=== PATIENT | male | born 1950 | race Caucasian/White ===

== ENCOUNTER 2022-01-05 21:06 | Observation (INO) | payer MEDICARE, OTHER ==
[2022-01-05] MEDS ORDERED: SODIUM CHLORIDE 0.9% 1,000 ML IV STA (21:42)
--- NOTE | 2022-01-05 21:46 | ED ---
Abdominal Pain HPI - General Chief Complaint: Abdominal Pain Stated Complaint: right flank pain Time Seen by Provider: 01/05/22 21:33 Source: patient Mode of arrival: ambulatory Limitations: no limitations - History of Present Illness Initial Comments: This is a pleasant 71-year-old male with a history of atrial fibrillation, hypertension, hyperlipidemia, kidney stones, and supraventricular tachycardia. Patient presents to the emergency department today complaining of right lower quadrant pain. Patient states he had mild discomfort in his midabdomen early in the week and now it has progressed and down to the right lower quadrant. [place] ent states that coughing, moving, bumps in the car, palpation exacerbate the pain. Alleviated by staying still. Really denying any nausea or vomiting. No diminished appetite. Patient was able to eat a ham sandwich at 5 PM. There is been no fever. No headache, no fever or chills, no changes in vision or hearing, no sore throat or difficulty with speech, no neck pain, no chest pain or shortness of breath, no nausea or vomiting, no changes in urination or bowel movements, no numbness or tingling, no extremity pain, no skin rashes or lesions. Past medical, surgical, social, and family history reviewed. - Related Data Allergies Allergy/AdvReac Type Severity Reaction Status Date / Time Sulfa (Sulfonamide Allergy Unknown Verified 01/05/22 21:15 Antibiotics) Childhood Review of Systems ROS Statement: Those systems with pertinent positive or pertinent negative responses have been documented in the HPI. ROS Other: All systems not noted in ROS Statement are negative. Past Medical History Past Medical History: Atrial Fibrillation, Hyperlipidemia, Hypertension, Supraventricular Tachycardia (SVT) Additional Past Medical History / Comment(s): COVID 2021, KINDEY STONES History of Any Multi-Drug Resistant Organisms: None Reported Past Surgical History: Ablation Past Psychological History: No Psychological Hx Reported Smoking Status: Never smoker Past Alcohol Use History: Occasional Past Drug Use History: None Reported General Exam - General Exam Comments Initial Comments: Vital signs stable, patient afebrile. Patient does not appear to be ill or toxic. Limitations: no limitations General appearance: alert, in no apparent distress Head exam: Present: atraumatic, normocephalic, normal inspection Eye exam: Present: normal appearance, PERRL, EOMI. Absent: scleral icterus, conjunctival injection, periorbital swelling ENT exam: Present: normal exam, mucous membranes moist, normal external ear exam. Absent: mucous membranes dry Neck exam: Present: normal inspection, full ROM Respiratory exam: Present: normal lung sounds bilaterally. Absent: respiratory distress, wheezes, rales, rhonchi, stridor Cardiovascular Exam: Present: regular rate, normal rhythm, normal heart sounds. Absent: systolic murmur, diastolic murmur, rubs, gallop, clicks GI/Abdominal exam: Present: soft, tenderness, guarding, rebound, diminished bowel sounds. Absent: distended, rigid Expanded GI/Abdominal exam: Present: psoas sign, obturator sign, Rovsing's sign, tenderness at McBurney's Point Extremities exam: Present: normal inspection, full ROM, normal capillary refill. Absent: tenderness, pedal edema, joint swelling, calf tenderness Back exam: Present: normal inspection Neurological exam: Present: alert, oriented X3, CN II-XII intact Psychiatric exam: Present: normal affect, normal mood Skin exam: Present: warm, dry, intact, normal color. Absent: rash Course Vital Signs 01/05/22 21:12 Temperature 98.3 F Pulse Rate 70 Respiratory 18 Rate Blood Pressure 126/83 O2 Sat by Pulse 97 Oximetry - Consultations Consultation #1: Case discussed in detail with Dr. Feldman who suggested admitting the patient for observation under medicine. He will recheck the patient in the morning. We'll repeat a CBC. Medical Decision Making - Medical Decision Making Patient's presentation most consistent with appendicitis as the patient has McBurney point tenderness with several signs of acute appendicitis to include rebound or percussion tenderness. Other inflammatory versus intra-abdominal pathology possible but less likely. Patient has no hematuria. No flank pain. There is no CVA pain. No fever. There is no upper abdominal pain. Not consistent with cardiopulmonary disease. Patient's white blood cell count is normal. Creatinine 1.47. Potassium 3.2. CO2 31. - Lab Data Result diagrams: 01/05/22 21:45 01/05/22 21:45 Lab Results 01/05/22 01/05/22 01/05/22 Range/Units 21:45 21:45 21:45 WBC 9.0 (3.8-10.6) k/uL RBC 4.81 (4.30-5.90) m/uL Hgb 15.4 (13.0-17.5) gm/dL Hct 45.7 (39.0-53.0) % MCV 95.0 (80.0-100.0) fL MCH 32.1 (25.0-35.0) pg MCHC 33.8 (31.0-37.0) g/dL RDW 12.8 (11.5-15.5) % Plt Count 167 (150-450) k/uL MPV 8.9 Neutrophils % 69 % Lymphocytes % 21 % Monocytes % 6 % Eosinophils % 2 % Basophils % 1 % Neutrophils # 6.2 (1.3-7.7) k/uL Lymphocytes # 1.9 (1.0-4.8) k/uL Monocytes # 0.6 (0-1.0) k/uL Eosinophils # 0.2 (0-0.7) k/uL Basophils # 0.1 (0-0.2) k/uL Sodium 139 (137-145) mmol/L Potassium 3.2 L (3.5-5.1) mmol/L Chloride 101 (98-107) mmol/L Carbon Dioxide 31 H (22-30) mmol/L Anion Gap 7 mmol/L BUN 20 (9-20) mg/dL Creatinine 1.47 H (0.66-1.25) mg/dL Est GFR (CKD-EPI)AfAm 54 (>60 ml/min/1.73 sqM) Est GFR (CKD-EPI)NonAf 47 (>60 ml/min/1.73 sqM) Glucose 114 H (74-99) mg/dL Calcium 9.5 (8.4-10.2) mg/dL Total Bilirubin 0.9 (0.2-1.3) mg/dL AST 34 (17-59) U/L ALT 23 (4-49) U/L Alkaline Phosphatase 73 (38-126) U/L Total Protein 7.3 (6.3-8.2) g/dL Albumin 4.4 (3.5-5.0) g/dL Urine Color Yellow Urine Appearance Clear (Clear) Urine pH 7.0 (5.0-8.0) Ur Specific [place] 1.022 (1.001-1.035) Urine Protein Trace H (Negative) Urine Glucose (UA) Negative (Negative) Urine Ketones Negative (Negative) Urine Blood Negative (Negative) Urine Nitrite Negative (Negative) Urine Bilirubin Negative (Negative) Urine Urobilinogen 3.0 (<2.0) mg/dL Ur Leukocyte Esterase Negative (Negative) Disposition Clinical Impression: Right lower quadrant abdominal pain, Terminal ileitis Disposition: ADMITTED IP TO THIS [facility] Condition: Stable Referrals: Nonstaff,Physician [Primary Care Provider] - 1-2 days Time of Disposition: 23:39 Decision to Admit Reason: Admit from EC Decision Time: 23:39
[2022-01-05 22:01] LABS: Basophils # (A) 0.1 k/uL (0-0.2); Basophils % (A) 1 %; Eosinophils # (A) 0.2 k/uL (0-0.7); Eosinophils % (A) 2 %; HCT 45.7 % (39.0-53.0); HGB 15.4 gm/dL (13.0-17.5); Lymphocytes # (A) 1.9 k/uL (1.0-4.8); Lymphocytes % (A) 21 %; MCH 32.1 pg (25.0-35.0); MCHC 33.8 g/dL (31.0-37.0); Mean Platelet Volume 8.9; Monocytes # (A) 0.6 k/uL (0-1.0); Monocytes % (A) 6 %; Neutrophils # (A) 6.2 k/uL (1.3-7.7); Neutrophils % (A) 69 %; Platelet Count 167 k/uL (150-450); RBC 4.81 m/uL (4.30-5.90); RDW 12.8 % (11.5-15.5)
[2022-01-05 22:02] LABS: Appearance,Urine Clear (Clear); Bilirubin,Urine Negative (Negative); Blood,Urine Negative (Negative); Color,Urine Yellow; Glucose,Urine (UA) Negative (Negative); Ketones,Urine Negative (Negative); Leukocyte Esterase,Urine Negative (Negative); Nitrite,Urine Negative (Negative); Protein,Urine Trace (Negative); Specific Gravity,Urine 1.022 (1.001-1.035)
[2022-01-05 22:18] LABS: Albumin 4.4 g/dL (3.5-5.0); Calcium 9.5 mg/dL (8.4-10.2); Potassium 3.2 mmol/L (3.5-5.1); Total Bilirubin 0.9 mg/dL (0.2-1.3); Total Protein 7.3 g/dL (6.3-8.2)
--- NOTE | 2022-01-05 23:26 | CT ---
EXAMINATION TYPE: CT abdomen pelvis w con DATE OF EXAM: 01/05/2022 COMPARISON: None HISTORY: RLQ abd pain CT DLP: 1117.6 mGycm Automated exposure control for dose reduction was used. CONTRAST: Performed with IV Contrast, patient injected with 80ml mL of Isovue 300. Images obtained from the diaphragm to the floor the pelvis with IV contrast. There is subsegmental atelectasis at the lung bases. Heart size is normal. No pericardial effusion. Liver spleen and stomach pancreas and gallbladder appear intact. The bile ducts are not dilated. There is no adrenal mass. Kidneys have normal size and contour. There is no hydronephrosis. There is 5 mm calculus lateral left kidney. Ureters are not dilated. 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 Bladder distends smoothly. There is 4 mm calculus lateral right kidney. There is no inguinal hernia. No free fluid in the pelvis. There is some fat stranding in the right lo wer quadrant. The appendix is normal size. Appendix mostly filled with air. No ascites or free air. No bowel obstruction. The lumbar vertebrae have normal alignment. No compression fracture. Facet joints are intact. Bony pe lvis is intact. Hip joints are intact. Impression There are bilateral nonobstructing renal calculi. Segmental atelectasis at the lung bases. There is fat stranding around the cecum and ileocecal valve and terminal ileum that could relate to f ocal inflammatory bowel disease. The appendix appears normal.
[2022-01-05] MEDS ORDERED: NALOXONE 0.4 MG/ML 1 ML VIAL IV PRN (23:55)
[2022-01-05] MEDS ORDERED: ONDANSETRON 4 MG/2 ML VIAL IVP PRN (23:55)
[2022-01-05] MEDS ORDERED: MORPHINE SULFATE 4 MG/ML SYRINGE IV PRN (23:55)
[2022-01-06] MEDS: SODIUM CHLORIDE 0.9% 1,000 ML IV SCH ×4 (01:58→23:29)
[2022-01-06 04:09] LABS: Basophils % (A) 1 %; Eosinophils # (A) 0.2 k/uL (0-0.7); Eosinophils % (A) 3 %; HCT 42.5 % (39.0-53.0); HGB 14.1 gm/dL (13.0-17.5); Lymphocytes # (A) 1.8 k/uL (1.0-4.8); Lymphocytes % (A) 25 %; MCH 31.9 pg (25.0-35.0); MCHC 33.1 g/dL (31.0-37.0); MCV 96.4 fL (80.0-100.0); Mean Platelet Volume 8.4; Monocytes # (A) 0.5 k/uL (0-1.0); Monocytes % (A) 7 %; Neutrophils # (A) 4.7 k/uL (1.3-7.7); Neutrophils % (A) 64 %; Platelet Count 145 k/uL (150-450); RBC 4.41 m/uL (4.30-5.90); RDW 12.9 % (11.5-15.5); WBC 7.3 k/uL (3.8-10.6)
[2022-01-06 04:30] LABS: Calcium 8.6 mg/dL (8.4-10.2); Potassium 3.6 mmol/L (3.5-5.1)
--- NOTE | 2022-01-06 07:04 | P.HPIM ---
History of Present Illness H&P Date: 01/06/22 The patient is a 71-year-old male with a PMH of A. fib not on anticoagulation (remote history of single episode as per patient), chronic kidney disease, hyperlipidemia, hypertension, who presents to the emergency room with complaints of right lower quadrant abdominal discomfort. The patient reports that his pain started roughly 5 days ago this past Friday. Reports that it was initially periumbilical but then moved to the right lower quadrant, 5 out of 10 at maximal intensity, nonradiating. Reports that the pain had improved to the 2 out of 10 at the time of interview. Notes that any sort of movement exacerbates the pain. He denied experiencing fever, chills, nausea, vomiting, or diarrhea. He also denied urinary complaints. Reports no changes in his diet or appetite. Patient also denied hematochezia or melena. CT abdomen and pelvis in the emergency room revealed bilateral nonobstructing renal calculi with fat stranding around the cecum and ileocecal valve and terminal ileum possibly due to focal inflammatory bowel disease with the appendix appearing normal. Laboratory evaluation was remarkable for creatinine of 1.66 and platelets 145. Review of systems: Pertinent positives and negatives as discussed in HPI, a complete review of systems was performed and all other systems are negative. Physical examination: General: non toxic, no distress, appears at stated age, normal weight Derm: no unusual rashes/lesions, warm Head: atraumatic, normocephalic, symmetric Eyes: EOMI, no lid lag, anicteric sclera, pupils equal round reactive to light ENT: Nose and ears atraumatic Neck: No cervical lymphadenopathy, trachea midline, supple Mouth: no lip lesion, mucus membranes moist Cardiovascular: S1S2 reg, no murmur, positive dorsalis pedis pulse bilateral, no edema Lungs: CTA bilateral, no rhonchi, no rales, no accessory muscle use Abdominal: soft, mild right lower quadrant tenderness, no guarding Ext: muscle strength 5 out of 5 in all 4 extremities grossly, no gross muscle atrophy, no contractures, Neuro: CN II-XI grossly intact, no gross focal neuro deficits Psych: Alert, oriented, appropriate affect Assessment/plan Abdominal pain with inflammatory changes of the terminal ileum -Concerning for possible inflammatory bowel disease i.e. Crohn's -Surgery consulted to rule out appendicitis -IV fluids -Pain control -Nothing by mouth for now -Consider steroids once appendicitis ruled out vs colonoscopy for diagnotic biopsy Chronic conditions: Hypertension, hyperlipidemia -Continue with home meds DVT prophylaxis -Heparin subcu The patient is admitted with an anticipated less than 2 midnight stay for evaluation of abdominal pain CODE STATUS: Full Code Discussed with: Patient Anticipated discharge date: in am Anticipated discharge place: Home Past Medical History Past Medical History: Atrial Fibrillation, Hyperlipidemia, Hypertension, Supraventricular Tachycardia (SVT) Additional Past Medical History / Comment(s): COVID 2021, KINDEY STONES History of Any Multi-Drug Resistant Organisms: None Reported Past Surgical History: Ablation Past Anesthesia/Blood Transfusion Reactions: No Reported Reaction Past Psychological History: No Psychological Hx Reported Smoking Status: Never smoker Past Alcohol Use History: Occasional Past Drug Use History: None Reported - Past Family History Mother Family Medical History: Hypertension (NUL), Skin Disorder Medications and Allergies Home Medications Medication Instructions Recorded Confirmed Type Doxazosin [Cardura] 2 mg PO DAILY 01/06/22 01/06/22 History Latanoprost/Pf [Latanoprost 0.005% 1 drop BOTH EYES DAILY 01/06/22 01/06/22 History Eye Drop] Lovastatin [Altoprev] 40 mg PO DAILY 01/06/22 01/06/22 History Metoprolol Succinate [Toprol XL] 50 mg PO DAILY 01/06/22 01/06/22 History Timolol 0.25% Ophth Soln [Timoptic] 1 drops BOTH EYES HS 01/06/22 01/06/22 History amLODIPine [Norvasc] 5 mg PO DAILY 01/06/22 01/06/22 History hydroCHLOROthiazide 25 mg PO DAILY 01/06/22 01/06/22 History Allergies Allergy/AdvReac Type Severity Reaction Status Date / Time Sulfa (Sulfonamide Allergy Unknown Verified 01/05/22 21:15 Antibiotics) Childhood Physical Exam Vitals: Vital Signs Temp Pulse Resp BP Pulse Ox 01/06/22 00:14 83 18 123/86 98 01/05/22 21:12 98.3 F 70 18 126/83 97 Intake and Output 01/05/22 01/05/22 01/06/22 14:59 22:59 06:59 Other: Weight 90.718 kg 90.718 kg Results CBC & Chem 7: 01/06/22 03:22 01/06/22 03:22 Labs: Abnormal Lab Results - Last 24 Hours (Table) 01/05/22 01/05/22 Range/Units 21:45 21:45 Potassium 3.2 L (3.5-5.1) mmol/L Carbon Dioxide 31 H (22-30) mmol/L Creatinine 1.47 H (0.66-1.25) mg/dL Glucose 114 H (74-99) mg/dL Urine Protein Trace H (Negative) Thrombosis Risk Factor Assmnt - Choose All That Apply Any of the Below Risk Factors Present?: No Each Risk Factor Represents 2 Points: Age 61-74 years Other congenital or acquired thrombophilia - If yes, enter type in comment: No Thrombosis Risk Factor Assessment Total Risk Factor Score: 2 Thrombosis Risk Factor Assessment Level: Low Risk
[2022-01-06] MEDS ORDERED: LATANOPROST 0.005% OPHTH DROPS 2.5 ML BTL BOTH EYES SCH ×2 (09:00→21:00)
--- NOTE | 2022-01-06 13:05 | P.GSCN ---
History of Present Illness Consult date: 01/06/22 Reason for Consult: Right lower quadrant abdominal pain History of present illness: Patient is a 71-year-old gentleman who presented to [facility] emergency department on 01/05/2022 with chief complaint of 4 days of progressive abdominal pain that started at the epigastric position and came to rest in the right lower quadrant. He denies attendant anorexia, nausea, vomiting, fever or chills. No reported radiation of pain to the shoulder or flank. He hasn't had similar discomfort in the past. No previous abdominal surgeries. No change in bowel habits, no signs of GI bleeding reported. He has no known personal or fam kizzy history of inflammatory bowel disease. He recalls having undergone colonoscopy somewhere around 5 years or more ago and recalls no specific abnormalities found. A computed tomography scan of the abdomen and pelvis was obtained showing a degree of fat stranding about the terminal ileum, ileocecal valve and cecum and some mild prominence of the adjacent mesenteric lymph nodes. Appendix was readily identified and shows no inflammatory changes, no fecalith, no abnormality to implicate an acute appendicitis. There is no adjacent free fluid no evidence of abscess. There was incidental note of a 2 cm left common iliac aneurysm and bilateral nonobstructing renal calculi. No evidence of bowel obstruction, no free air or free fluid. Apparently he and his suffered with Covid infection around 1 month ago. No reported recent sick contacts. Laboratory studies on presentation and this morning are unimpressive. Initial white blood cell count was 9.0, hemoglobin 15.4, platelet count 167. Serum sodium was 139, potassium slightly low at 3.2, CO2 31, creatinine of 1.47, glucose of 114. Liver function studies were all within normal limits. Urinalysis showed no signs of infection. He's been admitted for overnight observation to the medical service, been kept nothing by mouth with IV fluids and his right lower quadrant pain is quite improved. He still has some soreness with movement and position changes were on the whole is feeling better than on presentation. He feels quite hungry. Medical record suggests a history of atrial fibrillation, is not maintained on anticoagulants, would seem to be on rate control medications. No known personal history of heart attack, stroke, DVT or pulmonary embolus. Review of Systems All systems: negative - Constitutional Reports as per HPI Past Medical History Past Medical History: Atrial Fibrillation, Hyperlipidemia, Hypertension, Supraventricular Tachycardia (SVT) Additional Past Medical History / Comment(s): COVID 2021, KINDEY STONES History of Any Multi-Drug Resistant Organisms: None Reported Past Surgical History: Ablation Past Anesthesia/Blood Transfusion Reactions: No Reported Reaction Past Psychological History: No Psychological Hx Reported Smoking Status: Never smoker Past Alcohol Use History: Occasional Past Drug Use History: None Reported - Past Family History Mother Family Medical History: Hypertension (NUL), Skin Disorder Medications and Allergies Home Medications Medication Instructions Recorded Confirmed Type Doxazosin [Cardura] 2 mg PO DAILY 01/06/22 01/06/22 History Latanoprost/Pf [Latanoprost 0.005% 1 drop LEFT EYE HS 01/06/22 01/06/22 History Eye Drop] Lovastatin [Altoprev] 40 mg PO DAILY 01/06/22 01/06/22 History Metoprolol Succinate [Toprol XL] 50 mg PO DAILY 01/06/22 01/06/22 History Timolol 0.25% Ophth Soln [Timoptic] 1 drops LEFT EYE DAILY 01/06/22 01/06/22 History amLODIPine [Norvasc] 5 mg PO DAILY 01/06/22 01/06/22 History hydroCHLOROthiazide 25 mg PO DAILY 01/06/22 01/06/22 History Allergies Allergy/AdvReac Type Severity Reaction Status Date / Time Sulfa (Sulfonamide Allergy Unknown Verified 01/06/22 11:50 Antibiotics) Childhood Surgical - Exam Osteopathic Statement: *. No significant issues noted on an osteopathic structural exam other than those noted in the History and Physical/Consult. Vital Signs Temp Pulse Resp BP Pulse Ox 98.3 F 70 18 126/83 97 01/05/22 21:12 01/05/22 21:12 01/05/22 21:12 01/05/22 21:12 01/05/22 21:12 - General well developed, well nourished, no distress - Eyes PERRL, normal ocular movement - ENT normal pinna, normal nares, normal mucosa, no hearing loss, no congestion - Neck trachea midline - Respiratory normal respiratory effort, clear to auscultation - Cardiovascular Rhythm: regular - Abdomen Abdomen is soft, there is focal tenderness over McBurney's point with rebound, no guarding. Trace positive so as an Rovsing sign. Abdomen: soft Hernia: none - Integumentary no rash - Neurologic normal coordination, normal sensation - Psychiatric oriented to time, oriented to person, oriented to place, speech is normal, memory intact Results - Labs 01/06/22 03:22 01/06/22 03:22 Abnormal Lab Results - Last 24 Hours (Table) 01/05/22 01/05/22 01/06/22 Range/Units 21:45 21:45 03:22 Plt Count 145 L (150-450) k/uL Potassium 3.2 L (3.5-5.1) mmol/L Carbon Dioxide 31 H (22-30) mmol/L Creatinine 1.47 H (0.66-1.25) mg/dL Glucose 114 H (74-99) mg/dL Urine Protein Trace H (Negative) 01/06/22 Range/Units 03:22 Plt Count (150-450) k/uL Potassium (3.5-5.1) mmol/L Carbon Dioxide (22-30) mmol/L Creatinine 1.36 H (0.66-1.25) mg/dL Glucose (74-99) mg/dL Urine Protein (Negative) Diabetes panel 01/05/22 01/06/22 Range/Units 21:45 03:22 Sodium 139 138 (137-145) mmol/L Potassium 3.2 L 3.6 (3.5-5.1) mmol/L Chloride 101 106 (98-107) mmol/L Carbon Dioxide 31 H 29 (22-30) mmol/L BUN 20 18 (9-20) mg/dL Creatinine 1.47 H 1.36 H (0.66-1.25) mg/dL Glucose 114 H 96 (74-99) mg/dL Calcium 9.5 8.6 (8.4-10.2) mg/dL AST 34 (17-59) U/L ALT 23 (4-49) U/L Alkaline Phosphatase 73 (38-126) U/L Total Protein 7.3 (6.3-8.2) g/dL Albumin 4.4 (3.5-5.0) g/dL Calcium panel 01/05/22 01/06/22 Range/Units 21:45 03:22 Calcium 9.5 8.6 (8.4-10.2) mg/dL Albumin 4.4 (3.5-5.0) g/dL Pituitary panel 01/05/22 01/06/22 Range/Units 21:45 03:22 Sodium 139 138 (137-145) mmol/L Potassium 3.2 L 3.6 (3.5-5.1) mmol/L Chloride 101 106 (98-107) mmol/L Carbon Dioxide 31 H 29 (22-30) mmol/L BUN 20 18 (9-20) mg/dL Creatinine 1.47 H 1.36 H (0.66-1.25) mg/dL Glucose 114 H 96 (74-99) mg/dL Calcium 9.5 8.6 (8.4-10.2) mg/dL Adrenal panel 01/05/22 01/06/22 Range/Units 21:45 03:22 Sodium 139 138 (137-145) mmol/L Potassium 3.2 L 3.6 (3.5-5.1) mmol/L Chloride 101 106 (98-107) mmol/L Carbon Dioxide 31 H 29 (22-30) mmol/L BUN 20 18 (9-20) mg/dL Creatinine 1.47 H 1.36 H (0.66-1.25) mg/dL Glucose 114 H 96 (74-99) mg/dL Calcium 9.5 8.6 (8.4-10.2) mg/dL Total Bilirubin 0.9 (0.2-1.3) mg/dL AST 34 (17-59) U/L ALT 23 (4-49) U/L Alkaline Phosphatase 73 (38-126) U/L Total Protein 7.3 (6.3-8.2) g/dL Albumin 4.4 (3.5-5.0) g/dL - Imaging CT scan - abdomen: report reviewed, image reviewed CT scan - pelvis: report reviewed, image reviewed Assessment and Plan Assessment: 71-year-old gentleman with clinical history, physical exam, and imaging findings most consistent with mesenteric adenitis and acute viral illness. Alternatively could relate to a new presentation of inflammatory bowel disease but I feel like this is much less likely. His symptoms have improved with overnight bowel rest and IV fluids, doubt bacterial enteritis or colitis at present. Appendix is easily visualized on CT and is entirely normal in character, no fecalith. No signs of adjacent abscess formation. He has a nontoxic appearance. Plan: Okay to advance to soft diet, if he has no issues with dietary tolerance he should be okay for discharge from a surgical standpoint at any time. He was advised that his imaging is not convincing for acute appendicitis and mesenteric adenitis is typically self-limited. Treatment is supportive and typically does not require antibiotics. If he has recurrent issues with similar pain after discharge he will need a set of repeat imaging and diagnostic colonoscopy should be considered on an outpatient basis. Follow-up with primary care in 1 week. Follow-up with general surgery as needed. Time with Patient: Greater than 30
--- NOTE | 2022-01-06 13:14 | P.PN ---
Subjective Progress Note Date: 01/06/22 Hospital course: The patient is a very pleasant 71-year-old male with a past medical history of A. fib not on anticoagulation (reports remote history of single episode as per patient and [id number] 2 due to age and htn hx), chronic kidney disease, hyperlipidemia, and hypertension. He presented to the emergency department with a chief complaint of of right lower quadrant abdominal discomfort beginning approximately 5 days prior. Patient underwent full evaluation in the emergency d epartment. CT abdomen and pelvis revealing bilateral nonobstructing renal calculi, segmental atelectasis at lung bases, and fat stranding around the cecum and ileocecal valve and terminal ileum possibly relating to focal inflammatory bowel disease. CBC unremarkable, CMP revealed hypokalemia with potassium of 3.2 and consistent with PKD with BUN 20, creatinine 1.47, and GFR 47. Urinalysis positive for protein negative for blood or infection. Patient admitted under our services with consultation to general surgery. Physical examination: Patient seen and fully evaluated at bedside. Patient reports the pain in his right lower quadrant is a but is not significant unless he moves or coughs or palpates area. He denies any nausea or vomiting. Vital signs unremarkable. Morning labs unremarkable with the exception of platelet count of 145 and creatinine of 1.36. Awaiting general surgery to evaluate and further recommendations. Patient to remain Nothing by mouth, until cleared and diet is advanced by General Surgery. We will continue with symptomatic care and pain management and continued IV fluid hydration. General: non toxic, no distress, appears at stated age Derm: warm, dry Head: atraumatic, normocephalic, symmetric Eyes: EOMI, no lid lag, anicteric sclera Mouth: no lip lesion, mucus membranes moist Cardiovascular: S1S2 reg, no murmur, positive posterior tibial pulse bilateral, Lungs: CTA bilateral, no rhonchi, no rales , no accessory muscle use Abdominal: soft, right lower quadrant tenderness upon palpation, no guarding, no appreciable organomegaly Ext: no gross muscle atrophy, no edema, no contractures Neuro: CN II-XI grossly intact, no focal neuro deficits Psych: Alert, oriented, appropriate affect Assessment and plan of care: Abdominal pain with inflammatory changes of the terminal ileum, rule out appendicitis vs inflammatory bowel disease -CT abdomen and pelvis revealing bilateral nonobstructing renal calculi, segmental atelectasis at lung bases, and fat stranding around the cecum and ileocecal valve and terminal ileum possibly relating to focal inflammatory bowel disease. -Surgery consulted to rule out appendicitis -Continue hydration with IV fluids until diet can be advanced -Symptomatically and pain management -Nothing by mouth, until cleared by General Surgery Hypokalemia, resolved Hypertension -Monitor vital signs and continue daily medication regimen with metoprolol and amlodipine, hold hydrochlorothiazide at this time may resume once diet is advanced. Hyperlipidemia -Continue daily medication regimen with lovastatin. CODE STATUS: Full Code DVT prophylaxis: Lovenox Discussed with: Patient and patient's as well as RN Anticipated discharge date: Likely tomorrow morning Anticipated discharge place: Home A total of 35 minutes was spent on the care of this complex patient more than 50% of the time was spent in counseling and care coordination. I reviewed the documentation as provided by the MELBA above, who is the original author of this note. I agree with the documented assessment and plan, with the following changes: none Objective - Vital Signs Vital signs: Vital Signs Temp 97.7 F 01/06/22 07:00 Pulse 58 L 01/06/22 07:00 Resp 18 01/06/22 07:00 BP 105/65 01/06/22 07:00 Pulse Ox 93 L 01/06/22 07:00 FiO2 Intake & Output 01/05/22 01/06/22 01/06/22 18:59 06:59 18:59 Weight 90.718 kg Other: Voiding Method Toilet # Voids 2 - Labs CBC & Chem 7: 01/06/22 03:22 01/06/22 03:22 Labs: Abnormal Lab Results - Last 24 Hours (Table) 01/05/22 01/05/22 01/06/22 Range/Units 21:45 21:45 03:22 Plt Count 145 L (150-450) k/uL Potassium 3.2 L (3.5-5.1) mmol/L Carbon Dioxide 31 H (22-30) mmol/L Creatinine 1.47 H (0.66-1.25) mg/dL Glucose 114 H (74-99) mg/dL Urine Protein Trace H (Negative) 01/06/22 Range/Units 03:22 Plt Count (150-450) k/uL Potassium (3.5-5.1) mmol/L Carbon Dioxide (22-30) mmol/L Creatinine 1.36 H (0.66-1.25) mg/dL Glucose (74-99) mg/dL Urine Protein (Negative)
[2022-01-06] MEDS ORDERED: TIMOLOL 0.25% OPHTH DROPS 5 ML BTL BOTH EYES SCH (21:00)
[2022-01-07 02:40] VITALS: TEMP 97.9
[2022-01-07] MEDS: SODIUM CHLORIDE 0.9% 1,000 ML IV SCH (05:21)
[2022-01-07 08:02] VITALS: BP 114/69; PULSE 59; RESP 17
[2022-01-07] MEDS ORDERED: ATORVASTATIN 10 MG TAB PO SCH (09:00)
[2022-01-07] MEDS ORDERED: amLODIPine 5 MG TAB PO SCH (09:00)
[2022-01-07] MEDS ORDERED: TIMOLOL 0.25% OPHTH DROPS 5 ML BTL BOTH EYES SCH (09:00)
[2022-01-07] MEDS ORDERED: ENOXAPARIN 40 MG/0.4 ML SYRINGE SQ SCH (09:00)
[2022-01-07] MEDS ORDERED: METOPROLOL SUCCINATE (ER) 50 MG TAB.ER.24H PO SCH (09:00)
[2022-01-07] MEDS ORDERED: DOXAZOSIN 2 MG TAB PO SCH (09:00)
--- NOTE | 2022-01-07 09:25 | P.DS ---
Providers Date of admission: 01/06/22 00:31 Expected date of discharge: 01/07/22 Attending physician: Jeremías Corey MD Consults: 01/05/22 23:55 Consult Physician Stat Consulting Provider: Jamey Feldman Reason/Comments: Right lower quadrant pain, terminal ileitis Do you want consulting provider notified?: Already Contacted Primary care physician: Physician Nonstaff Hospital Course: Discharge Diagnosis: Abdominal pain with inflammatory changes of the terminal ileum, appendicitis ruled out. Symptoms resolved. Hypokalemia, resolved Hypertension. Monitor vital signs and continue daily medication regimen with metoprolol, hydrochlorothiazide and amlodipine. Hyperlipidemia. Continue daily medication regimen with lovastatin. Hospital Course: The patient is a very pleasant 71-year-old male with a past medical history of A. fib not on anticoagulation (reports remote history of single episode as per patient and [id number] 2 due to age and htn hx), chronic kidney disease, hyperlipidemia, and hypertension. He presented to the emergency department with a chief complaint of of right lower quadrant abdominal discomfort beginning approximately 5 days prior. Patient underwent full evaluation in the emergency department. CT abdomen and pelvis revealing bilateral nonobstructing renal calculi, segmental atelectasis at lung bases, and fat stranding around the cecum and ileocecal valve and terminal ileum possibly relating to focal inflammatory bowel disease. CBC unremarkable, CMP revealed hypokalemia with potassium of 3.2 and consistent with PKD with BUN 20, creatinine 1.47, and GFR 47. Urinalysis positive for protein negative for blood or infection. Patient admitted under our services with consultation to general surgery. He was seen and evaluated by general surgery and stated appendix was easily visualized on CT and entire normal in character with no signs of abscess formation. Patient's diet was advanced and patient tolerated well. Patient's pain progressively improved and nearly resolved. Patient tolerating regular diet and denied any episodes of n ausea, vomiting, diarrhea, or any other complaints. Patient reports that he is passing flatus and had a bowel movement last night. Patient is medically stable for discharge at this time. Given information on local primary care provider as patient is new to our area, it was recommended patient establish care with this PCP and follow up in 1-2 days and as needed. Patient medically stable for dis charge home. Physical examination: General: non toxic, no distress, appears at stated age Derm: warm, dry Head: atraumatic, normocephalic, symmetric Eyes: EOMI, no lid lag, anicteric sclera Mouth: no lip lesion, mucus membranes moist Cardiovascular: S1S2 reg, no murmur, positive posterior tibial pulse bilateral, Lungs: CTA bilateral, no rhonchi, no rales , no accessory muscle use Abdominal: soft, nontender to palpation, no guarding, no appreciable organomegaly Ext: no gross muscle atrophy, no edema, no contractures Neuro: CN II-XI grossly intact, no focal neuro deficits Psych: Alert, oriented, appropriate affect A total of 31 minutes of time were spent preparing this complex discharge summary. Pt was discharged on 01/07/22 at 8:10 AM. I reviewed the documentation as provided by the MELBA above, who is the original author of this note. I agree with the documented assessment and plan, with the following changes: none Patient Condition at Discharge: Stable Plan - Discharge Summary Discharge Rx Participant: No New Discharge Prescriptions: Continue hydroCHLOROthiazide 25 mg PO DAILY amLODIPine [Norvasc] 5 mg PO DAILY Timolol 0.25% Ophth Soln [Timoptic 0.25% Ophth Soln] 1 drops LEFT EYE DAILY Latanoprost/Pf [Latanoprost 0.005% Eye Drop] 1 drop LEFT EYE HS Doxazosin [Cardura] 2 mg PO DAILY Metoprolol Succinate [Toprol XL] 50 mg PO DAILY Lovastatin [Altoprev] 40 mg PO DAILY Discharge Medication List Doxazosin [Cardura] 2 mg PO DAILY 01/06/22 [History] Latanoprost/Pf [Latanoprost 0.005% Eye Drop] 1 drop LEFT EYE HS 01/06/22 [History] Lovastatin [Altoprev] 40 mg PO DAILY 01/06/22 [History] Metoprolol Succinate [Toprol XL] 50 mg PO DAILY 01/06/22 [History] Timolol 0.25% Ophth Soln [Timoptic 0.25% Ophth Soln] 1 drops LEFT EYE DAILY 01/06/22 [History] amLODIPine [Norvasc] 5 mg PO DAILY 01/06/22 [History] hydroCHLOROthiazide 25 mg PO DAILY 01/06/22 [History] Follow up Appointment(s)/Referral(s): Gonzalez Gonzalez [STAFF PHYSICIAN] - 1 Week (Recommend for family PCP) Activity/Diet/Wound Care/Special Instructions: Activity: As tolerated. Take breaks as needed. Diet: For the next few days I would follow a low fat diet and then may resume regular Heart healthy diet as tolerated. Special Instructions: Take all of your medications as directed and remember to keep all of your doctor's appointments and follow-up as needed. Thank you for allowing us to participate in your care, it was truly a pleasure having you for our patient!!! I hope you and your complete your move safely and truly love your new home and new location here in [place]!!!!! Discharge Disposition: HOME SELF-CARE
== END 2022-01-07 09:32 | disposition home or self-care (01) ==
LOC: EC 21:06 → 6NMEDSUR 01-06 00:31
PROVIDERS: ADMIT Internal Medicine; ATTEND Internal Medicine
DX: K50.00 Crohn's disease of small intestine without complications (principal); E87.6 Hypokalemia; E78.5 Hyperlipidemia, unspecified; I48.91 Unspecified atrial fibrillation; J98.11 Atelectasis; I47.1 Supraventricular tachycardia; I72.3 Aneurysm of iliac artery; N20.0 Calculus of kidney; I12.9 Hypertensive chronic kidney disease with stage 1 through stage 4 chronic kidney disease, or unspecified chronic kidney disease; N18.9 Chronic kidney disease, unspecified; Z88.2 Allergy status to sulfonamides; Z87.442 Personal history of urinary calculi; Z86.16 Personal history of COVID-19; Z82.49 Family history of ischemic heart disease and other diseases of the circulatory system; Z79.899 Other long term (current) drug therapy
CPT/HCPCS: 99285; 36415; 80053; 80048; 85025 ×2; 81003; 74177; G0378 ×2; Q9967

== ENCOUNTER 2022-10-31 07:03 | Emergency (ER) | payer MEDICARE, OTHER ==
[2022-10-31 07:09] VITALS: TEMP 96.8
[2022-10-31] MEDS ORDERED: HYDROmorphone 0.5 MG/0.5 ML SYRINGE IVP STA ×2 (07:22→10:38)
[2022-10-31] MEDS ORDERED: SODIUM CHLORIDE 0.9% 1,000 ML IV STA (07:22)
[2022-10-31] MEDS ORDERED: KETOROLAC 15 MG/ML 1 ML VIAL IVP STA (07:22)
[2022-10-31] MEDS ORDERED: ONDANSETRON 4 MG/2 ML VIAL IVP STA (07:22)
--- NOTE | 2022-10-31 07:53 | ED ---
Abdominal Pain HPI - General Chief Complaint: Abdominal Pain Stated Complaint: POSSIBLE KIDNEY STONE Time Seen by Provider: 10/31/22 07:12 Source: patient, RN notes reviewed Mode of arrival: wheelchair Limitations: no limitations - History of Present Illness Initial Comments: 72-year-old male presents emergency Department with chief complaint of left fla nk pain. Patient states pain started yesterday has worsened overnight. Patient is admitted nausea and vomiting. Patient states her left side and radiates on. States that he kidney stone the past states this feels much different. He has no dysuria no hematuria no diarrhea no constipation. Patient had no prior abdominal surgeries. - Related Data Home Medications Medication Instructions Recorded Confirmed Doxazosin [Cardura] 2 mg PO DAILY 01/06/22 07/10/22 Latanoprost/Pf [Latanoprost 0.005% 1 drop LEFT EYE HS 01/06/22 07/10/22 Eye Drop] Lovastatin [Altoprev] 40 mg PO DAILY 01/06/22 07/10/22 Metoprolol Succinate [Toprol XL] 50 mg PO DAILY 01/06/22 07/10/22 Timolol 0.25% Ophth Soln [Timoptic 1 drops LEFT EYE DAILY 01/06/22 07/10/22 0.25% Ophth Soln] amLODIPine [Norvasc] 5 mg PO DAILY 01/06/22 07/10/22 hydroCHLOROthiazide 25 mg PO DAILY 01/06/22 07/10/22 Previous Rx's Medication Instructions Recorded HYDROcodone/APAP 7.5-325MG [Fillmore 1 tab PO Q6HR PRN 3 Days #12 tab 10/31/22 7.5-325] Ondansetron Odt [Zofran Odt] 4 mg PO Q8HR PRN #10 tab 10/31/22 Allergies Allergy/AdvReac Type Severity Reaction Status Date / Time Sulfa (Sulfonamide Allergy Unknown Verified 07/10/22 16:03 Antibiotics) Childhood Review of Systems ROS Statement: Those systems with pertinent positive or pertinent negative responses have been documented in the HPI. ROS Other: All systems not noted in ROS Statement are negative. Past Medical History Past Medical History: Atrial Fibrillation, Hyperlipidemia, Hypertension, Supraventricular Tachycardia (SVT) Additional Past Medical History / Comment(s): COVID 2021, svt, transient A fib, KINDEY STONES x 2, glaucoma left eye History of Any Multi-Drug Resistant Organisms: None Reported Past Surgical History: Ablation Additional Past Surgical History / Comment(s): cataract surgery r eye Past Anesthesia/Blood Transfusion Reactions: No Reported Reaction Past Psychological History: No Psychological Hx Reported Smoking Status: Never smoker - Past Family History Mother Family Medical History: No Reported History Father Family Medical History: Cancer Additional Family Medical History / Comment(s): colon General Exam Limitations: no limitations General appearance: alert, in no apparent distress Head exam: Present: atraumatic, normocephalic, normal inspection Eye exam: Present: normal appearance, PERRL, EOMI. Absent: scleral icterus, conjunctival injection, periorbital swelling ENT exam: Present: normal exam, normal oropharynx, mucous membranes moist Neck exam: Present: normal inspection, full ROM. Absent: tenderness, meningismus, lymphadenopathy Respiratory exam: Present: normal lung sounds bilaterally. Absent: respiratory distress, wheezes, rales, rhonchi, stridor Cardiovascular Exam: Present: regular rate, normal rhythm, normal heart sounds. Absent: systolic murmur, diastolic murmur, rubs, gallop, clicks GI/Abdominal exam: Present: soft, tenderness, normal bowel sounds. Absent: distended, guarding, rebound, rigid Course Vital Signs 10/31/22 10/31/22 10/31/22 07:06 07:53 08:15 Temperature 96.8 F L Pulse Rate 59 L 60 65 Respiratory 19 18 18 Rate Blood Pressure 125/80 125/85 122/81 O2 Sat by Pulse 98 96 98 Oximetry Medical Decision Making - Lab Data Result diagrams: 10/31/22 07:51 10/31/22 07:51 Lab Results 10/31/22 10/31/22 10/31/22 Range/Units 07:51 07:51 10:08 WBC 7.6 (3.8-10.6) k/uL RBC 5.14 (4.30-5.90) m/uL Hgb 17.1 (13.0-17.5) gm/dL Hct 50.3 (39.0-53.0) % MCV 97.8 (80.0-100.0) fL MCH 33.3 (25.0-35.0) pg MCHC 34.1 (31.0-37.0) g/dL RDW 12.8 (11.5-15.5) % Plt Count 170 (150-450) k/uL MPV 8.8 Neutrophils % 77 % Lymphocytes % 17 % Monocytes % 5 % Eosinophils % 1 % Basophils % 0 % Neutrophils # 5.8 (1.3-7.7) k/uL Lymphocytes # 1.3 (1.0-4.8) k/uL Monocytes # 0.4 (0-1.0) k/uL Eosinophils # 0.0 (0-0.7) k/uL Basophils # 0.0 (0-0.2) k/uL Sodium 138 (137-145) mmol/L Potassium 3.4 L (3.5-5.1) mmol/L Chloride 99 (98-107) mmol/L Carbon Dioxide 27 (22-30) mmol/L Anion Gap 12 mmol/L BUN 26 H (9-20) mg/dL Creatinine 1.71 H (0.66-1.25) mg/dL Est GFR (CKD-EPI)AfAm 45 (>60 ml/min/1.73 sqM) Est GFR (CKD-EPI)NonAf 39 (>60 ml/min/1.73 sqM) Glucose 165 H (74-99) mg/dL Calcium 9.4 (8.4-10.2) mg/dL Total Bilirubin 1.1 (0.2-1.3) mg/dL AST 33 (17-59) U/L ALT 30 (4-49) U/L Alkaline Phosphatase 74 (38-126) U/L Total Protein 7.3 (6.3-8.2) g/dL Albumin 4.4 (3.5-5.0) g/dL Lipase 134 (23-300) U/L Urine Color Yellow Urine Appearance Clear (Clear) Urine pH 5.5 (5.0-8.0) Ur Specific Roy 1.020 (1.001-1.035) Urine Protein Negative (Negative) Urine Glucose (UA) 1+ H (Negative) Urine Ketones 1+ H (Negative) Urine Blood Moderate H (Negative) Urine Nitrite Negative (Negative) Urine Bilirubin Negative (Negative) Urine Urobilinogen <2.0 (<2.0) mg/dL Ur Leukocyte Esterase Negative (Negative) Urine RBC 23 H (0-5) /hpf Urine WBC 1 (0-5) /hpf Urine Mucus Rare H (None) /hpf Disposition Clinical Impression: Left ureteral calculus Disposition: HOME SELF-CARE Condition: Stable Instructions (If sedation given, give patient instructions): Kidney Stones (ED) Additional Instructions: Please return to the Emergency Department if symptoms worsen or any other concerns. Prescriptions: HYDROcodone/APAP 7.5-325MG [Fillmore 7.5-325] 1 tab PO Q6HR PRN 3 Days #12 tab PRN Reason: Pain Ondansetron Odt [Zofran Odt] 4 mg PO Q8HR PRN #10 tab PRN Reason: Nausea Is patient prescribed a controlled substance at d/c from ED?: Yes When asked, does pt state using other controlled substances?: No If prescribed controlled substance>3 days was MAPS reviewed?: Prescribed <3 Days If opioid is for acute pain is fill amount 7 days or less?: Yes If Rx opioid, was Start Talking consent form obtained?: Yes Referrals: None,Stated [REFERRING] - 1-2 days Time of Disposition: 10:32
[2022-10-31 08:05] LABS: Basophils % (A) 0 %; Eosinophils % (A) 1 %; HCT 50.3 % (39.0-53.0); HGB 17.1 gm/dL (13.0-17.5); Lymphocytes # (A) 1.3 k/uL (1.0-4.8); Lymphocytes % (A) 17 %; MCH 33.3 pg (25.0-35.0); MCHC 34.1 g/dL (31.0-37.0); MCV 97.8 fL (80.0-100.0); Mean Platelet Volume 8.8; Monocytes # (A) 0.4 k/uL (0-1.0); Monocytes % (A) 5 %; Neutrophils # (A) 5.8 k/uL (1.3-7.7); Neutrophils % (A) 77 %; Platelet Count 170 k/uL (150-450); RBC 5.14 m/uL (4.30-5.90); RDW 12.8 % (11.5-15.5); WBC 7.6 k/uL (3.8-10.6)
[2022-10-31 08:27] LABS: Albumin 4.4 g/dL (3.5-5.0); Calcium 9.4 mg/dL (8.4-10.2); Potassium 3.4 mmol/L (3.5-5.1); Total Bilirubin 1.1 mg/dL (0.2-1.3); Total Protein 7.3 g/dL (6.3-8.2)
--- NOTE | 2022-10-31 08:43 | CT ---
EXAMINATION TYPE: CT abdomen pelvis wo con CT DLP: 769.7 mGycm, Automated exposure control for dose reduction was used. DATE OF EXAM: 10/31/2022 8:24 AM COMPARISON: CT abdomen pelvis most recent from 01/05/2022 CLINICAL INDICATION:Male, 72 years old with history of left flank pain; Lt flank pain TECHNIQUE: Axial CT of the abdomen and pelvis. Sagittal and coronal reformats were created on a [employer] workstation. Contrast used: None Oral contrast used: without Oral Contrast FINDINGS: LOWER CHEST: Unremarkable ABDOMEN LIVER: Unremarkable GALLBLADDER AND BILE DUCTS: Layering increased densities within the lumen consistent with gallstones are present. PANCREAS: Unremarkable. SPLEEN: Unremarkable. ADRENAL GLANDS: Unremarkable. KIDNEYS AND URETERS: Nonobstructing right 3 mm calculus. No right hydronephrosis. Left hydroureterone phrosis secondary obstructing 5 mm calculus in the left mid ureter. PELVIS BLADDER: Unremarkable REPRODUCTIVE: Prostate is enlarged in size measuring 6.0 cm in transverse dimension. ABDOMEN & PELVIS STOMACH AND BOWEL: No evidence of bowel obstruction. Small to moderate hiatal hernia. The appendix is normal. Scattered colonic diverticula are present. PERITONEUM/RETROPERITONEUM: No evidence of pneumoperitoneum or free fluid. VASCULATURE: Left common iliac artery fusiform dilation up to 2.3 cm. Scattered atherosclerosis of th e arterial vasculature. 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 Multilevel disc degeneration changes throughout the spine. LYMPH NODES: No gross evidence for lymphadenopathy. SOFT TISSUE/ABDOMINAL WALL: Bilateral fat-containing inguinal hernias.. IMPRESSION: 1. Left hydroureteronephrosis secondary obstructing 5 mm calculus in the left mid ureter. Additional nonobstructing right renal calculus. 2. Cholelithiasis. 3. Bilateral fat-containing inguinal hernias. 4. Prostatomegaly, correlate with serum PSA. 5. Small to moderate hiatal hernia. 6. Left common iliac artery fusiform dilation up to 2.3 cm which is stable from 01/05/2022 given diffe rences in technique.
[2022-10-31 10:18] LABS: Appearance,Urine Clear (Clear); Bilirubin,Urine Negative (Negative); Blood,Urine Moderate (Negative); Color,Urine Yellow; Glucose,Urine (UA) 1+ (Negative); Ketones,Urine 1+ (Negative); Leukocyte Esterase,Urine Negative (Negative); Mucus,Urine Rare /hpf; Nitrite,Urine Negative (Negative); PH, Urine 5.5 (5.0-8.0); Protein,Urine Negative (Negative); RBC,Urine 23 /hpf (0-5); Urobilinogen,Urine <2.0 mg/dL (<2.0); WBC,Urine 1 /hpf (0-5)
[2022-10-31 11:28] VITALS: BP 110/71; PULSE 60; RESP 16
== END 2022-10-31 11:45 | disposition home or self-care (01) ==
LOC: EC 07:03
DX: N13.2 Hydronephrosis with renal and ureteral calculous obstruction (principal); K40.20 Bilateral inguinal hernia, without obstruction or gangrene, not specified as recurrent; K44.9 Diaphragmatic hernia without obstruction or gangrene; K80.20 Calculus of gallbladder without cholecystitis without obstruction; N40.0 Benign prostatic hyperplasia without lower urinary tract symptoms; I48.91 Unspecified atrial fibrillation; E78.5 Hyperlipidemia, unspecified; I10 Essential (primary) hypertension; Z79.899 Other long term (current) drug therapy; Z88.2 Allergy status to sulfonamides
CPT/HCPCS: 36415; 80053; 83690; 85025; 81001; 74176; 99284; 96374; 96375 ×2; 96376; 96361; J2405; J1885; J1170